=== PATIENT | male | born 1995 | race Two or more races ===

== ENCOUNTER 2024-06-01 23:13 | Emergency (ER) | payer MEDICAID ==
[~2024-06-01] VITALS: Ht 172.7 cm; Wt 86.2 kg
[2024-06-02] MEDS ORDERED: HYDROCODONE/APAP 5/325MG TABLET ONE (01:18)
[2024-06-02] MEDS: HYDROCODONE/APAP 5/325MG TABLET PO ONE (01:20)
[2024-06-02 03:53] VITALS: BP 124/65; TEMP 98; O2SAT 99
== END 2024-06-02 03:54 | disposition home or self-care (01) ==
LOC: ER 23:14
DX: S23.3XXA Sprain of ligaments of thoracic spine, initial encounter (principal); S13.4XXA Sprain of ligaments of cervical spine, initial encounter; F17.200 Nicotine dependence, unspecified, uncomplicated; V43.52XA Car driver injured in collision with other type car in traffic accident, initial encounter; Y93.89 Activity, other specified; Y92.488 Other paved roadways as the place of occurrence of the external cause; Y99.8 Other external cause status
CPT/HCPCS: 72125-TC; 72128-TC